=== PATIENT | male | born 1945 | race Caucasian/White ===

== ENCOUNTER 2020-10-18 12:48 | Emergency (ER) | payer OTHER ==
[~2020-10-18] VITALS: Ht 167.6 cm; Wt 102.1 kg
[~2020-10-18 12:48] MED LIST: ALLO100 PO; ASPI81CH PO; ATEN100; BENA20 PO; FISH1000 PO; OXYB5 PO; Simvastatin10 MG PO
[2020-10-18 14:01] LABS: BASOPHILS ABSOLUTE AUTO 0.01 K/mm3 (0.00-0.23); BASOPHILS PERCENT AUTO 0 % (0-2); EOSINOPHILS PERCENT AUTO 0 % (0-6); Hematocrit 40.2 % (37.0-53.0); Hemoglobin 13.3 g/dL (13.5-17.5); IMMATURE GRAN ABSOLUTE AUTO 0.02 K/mm3 (0.00-0.10); IMMATURE GRAN PERCENT AUTO 0 % (0-1); LYMPHOCYTES ABSOLUTE AUTO 1.33 K/mm3 (0.84-5.20); LYMPHOCYTES PERCENT AUTO 27 % (21-46); MONOCYTES ABSOLUTE AUTO 0.52 K/mm3 (0.16-1.47); MONOCYTES PERCENT AUTO 11 % (4-13); Mean Corpuscular HGB 30.6 pg (26.0-34.0); Mean Corpuscular HGB Conc 33.1 g/dL (31.5-36.5); Mean Corpuscular Volume 92 fL (80-100); Mean Platelet Volume 10.1 fL (9.1-12.4); NEUTROPHILS PERCENT AUTO 61 % (41-73); Platelet Count 153 K/mm3 (150-400); RDW Coefficient Variation 12.3 % (11.7-14.2); RDW Standard Deviation 42.5 fL (35.1-46.3); Red Blood Cell Count 4.35 M/mm3 (4.30-5.90); White Blood Cell Count 4.88 K/mm3 (4.00-11.30)
[2020-10-18 14:23] LABS: Albumin, Blood 3.3 g/dL (3.4-5.0); Albumin/Globulin Ratio 0.8 (0.8-1.8); Bilirubin, Total 0.3 mg/dL (0.1-1.0); Bun/Creatinine Ratio 14.3 (12.0-20.0); Calcium, Blood 8.3 mg/dL (8.5-10.1); Creatinine, Blood 1.54 mg/dL (0.60-1.20); Globulin, Blood 4.1 g/dL (2.2-4.0); Potassium, Blood 4.1 mmol/L (3.5-5.5); Total Protein, Blood 7.4 g/dL (6.4-8.2); Troponin I 0.04 ng/mL (0.000-0.040)
== END 2020-10-18 18:20 | disposition home or self-care (01) ==
LOC: ER 12:48
PROVIDERS: Physician Assistant
DX: U07.1 COVID-19 (principal); Z79.82 Long term (current) use of aspirin; Z79.899 Other long term (current) drug therapy
CPT/HCPCS: 36415; 71046; 80053; 83690; 83880; 84484; 85025; 93005; 93010; 99284-25

== ENCOUNTER 2021-08-28 10:51 | Day surgery (SDC) | payer OTHER ==
[~2021-08-28] VITALS: Ht 170.2 cm; Wt 99.5 kg
[2021-08-28] MEDS ORDERED: BUSP10 PO (11:38)
[2021-08-28] MEDS ORDERED: CATAPRES0.2 M1 PO (11:38)
[2021-08-28] MEDS ORDERED: SPIR50 PO (11:39)
[2021-08-28] MEDS ORDERED: FISH OIL 1,2001 EAC7 PO (11:41)
[2021-08-28] MEDS ORDERED: AMLO10 PO (11:41)
[2021-08-28] MEDS ORDERED: VITAMIN D31000 UNI1 PO (11:42)
[2021-08-28] MEDS ORDERED: HYDR100 PO (11:42)
== END 2021-08-28 13:28 | disposition home or self-care (01) ==
LOC: ORSCSDS 10:51
PROVIDERS: Student in an Organized Health Care Education/Training Program
PROC: 0D758ZZ Dilation of Esophagus, Via Natural or Artificial Opening Endoscopic (ICD-10-PCS; principal; 2021-08-28 12:00)
PROC: 0DB68ZX Excision of Stomach, Via Natural or Artificial Opening Endoscopic, Diagnostic (ICD-10-PCS; principal; 2021-08-28 12:00)
DX: R13.10 Dysphagia, unspecified (principal); I10 Essential (primary) hypertension; G47.33 Obstructive sleep apnea (adult) (pediatric); E66.9 Obesity, unspecified; I25.10 Atherosclerotic heart disease of native coronary artery without angina pectoris; Z68.34 Body mass index [BMI] 34.0-34.9, adult; Z79.82 Long term (current) use of aspirin; Z79.899 Other long term (current) drug therapy
CPT/HCPCS: 88305; 88342; J2704; J7120

== ENCOUNTER 2023-06-24 13:50 | Day surgery (SDC) | payer OTHER ==
[~2023-06-24] VITALS: Ht 172.7 cm; Wt 96.3 kg
[~2023-06-24 13:50] MED LIST changes: +ALLO300 PO; +AMLO10 PO; +Atropine Sulfate 0.1 MG/ML 10ML SYR ONE; +BENAZEPRIL HCL40 M1 PO; +BUSP10 PO; +CARV25 PO; +CATAPRES0.2 M1 PO; +DICL75ER PO; +EPLE25 PO; +FISH OIL 1,2001 EAC7 PO; +GABA300 PO; +Glycopyrrolate 0.2 MG/ML 1MLVIAL ONE; +HYDR100 PO; +Lactated Ringer's 1,000 ML IV ONE; +Lidocaine 2% 5 ML SDV ONE; +Lidocaine HCl/Pf 1% 5 ML VIAL ONE; +Methylene Blue 1% 100 MG/10 ML VIAL ONE; +Ondansetron HCl 2 MG / ML 2ML Vial ONE; +SPIR50 PO; +TAMS.4ER PO; +VITAMIN D31000 UNI1 PO; +ePHEDrine Sulfate 50 MG/ML 1ML Injection ONE
--- NOTE | 2023-06-24 15:54 | NUR ---
06/24/23 1554 Clarissa Carmen PT'S BP WAS 214/92 IN PRE OP. DOCTOR BECERRA AND DOCTOR CARDOSO NOTIFIED. WHILE DISCUSSING THE BP READINGS WITH THE DOCTORS, PT STATED "I DO NOT FEEL SAFE PROCEEDING WITH THIS PROCEDURE WITH MY BP SO HIGH. IS IT OK IF I RESCHEDULE?" BOTH DOCTORS NOTIFIED OF PT'S WISHES TO RESCHEDULE. DR BECERRA STATED PT SHOULD FOLLOW UP WITH PCP AND THE OFFICE WILL CALL TO RESCHEDULE PT FOR HIS PROCEDURE. PT ADVISED TO FOLLOW UP TODAY WITH PRIMARY CARE OR GO TO THE ER IF HE DEVELOPS SYMPTOMS OF HYPERTENSION (HEADACHES, DIZZINESS, BLURRED VISION). PT STATED HE WAS LEAVING THE SURGERY CENTER AND GOING OVER TO [place] TO SEE HIS PCP REGARDING HIS BP READINGS TODAY. PT VOICED UNDERSTANDING AND WISHED TO RESCHEDULE HIS CASE WHEN HIS BP IS BETTER CONTROLLED.
[2023-07-23] MEDS ORDERED: Zocor20 MG PO (10:20)
== END 2023-06-24 15:15 | disposition home or self-care (01) ==
LOC: ORSCSDS 13:50
DX: Z12.11 Encounter for screening for malignant neoplasm of colon (principal); Z53.9 Procedure and treatment not carried out, unspecified reason
CPT/HCPCS: J0461; J2001; J2405; J7120; Q9968

== ENCOUNTER 2023-09-02 21:26 | Emergency (ER) | payer OTHER ==
[~2023-09-02] VITALS: Ht 170.2 cm; Wt 94.8 kg
[~2023-09-02 21:26] MED LIST changes: -Atropine Sulfate 0.1 MG/ML 10ML SYR ONE; -Glycopyrrolate 0.2 MG/ML 1MLVIAL ONE; -Lactated Ringer's 1,000 ML IV ONE; -Lidocaine 2% 5 ML SDV ONE; -Lidocaine HCl/Pf 1% 5 ML VIAL ONE; -Methylene Blue 1% 100 MG/10 ML VIAL ONE; -Ondansetron HCl 2 MG / ML 2ML Vial ONE; +Zocor20 MG PO; -ePHEDrine Sulfate 50 MG/ML 1ML Injection ONE
[2023-09-02 22:04] VITALS: BP 175/86
[2023-09-02 22:15] LABS: Source, Urine Clean Catch
[2023-09-02 22:18] LABS: Appearance, Urine Hazy (Clear); Bilirubin, Urine Neg (Neg); Blood, Urine 5+ (Neg); Color, Urine Yellow (P-Yellow); Glucose Qualitative, Urine Neg (Neg); Ketones, Urine Neg (Neg); Leukocyte Esterase, Urine 1+ (Neg); Nitrite, Urine Neg (Neg); Protein, Urine 2+ (Neg); Specific Gravity, Urine 1.015 (1.003-1.022); Urobilinogen, Urine NORM (Normal); pH, Urine 6.5 (5.0-8.0)
[2023-09-02 22:37] LABS: Bacteria Mod /hpf; Red Blood Cells, Urine 25-50 /hpf (0-2); Squamous Epithelial Cells Few /hpf (Few)
[2023-09-02] MEDS ORDERED: CEPH500 PO (22:39)
[2023-09-02] MEDS ORDERED: Cephalexin Monohydrate 500 MG Cap PO ONE (22:40)
== END 2023-09-02 22:50 | disposition home or self-care (01) ==
LOC: ER 21:26
PROVIDERS: Physician Assistant
DX: N39.0 Urinary tract infection, site not specified (principal); Z79.82 Long term (current) use of aspirin; Z79.899 Other long term (current) drug therapy
CPT/HCPCS: 81001; 87086; 99283; A9270

== ENCOUNTER 2023-09-06 07:33 | Emergency (ER) | payer OTHER ==
[~2023-09-06] VITALS: Ht 170.2 cm; Wt 95.2 kg
[~2023-09-06 07:33] MED LIST changes: +CEPH500 PO
[2023-09-06] MEDS ORDERED: NEURONTIN300 MG PO (08:29)
[2023-09-06 08:59] LABS: Source, Urine Clean Catch
[2023-09-06 09:04] LABS: Appearance, Urine Cloudy (Clear); Bilirubin, Urine Neg (Neg); Blood, Urine 5+ (Neg); Color, Urine Red (P-Yellow); Glucose Qualitative, Urine Neg (Neg); Ketones, Urine 1+ (Neg); Leukocyte Esterase, Urine 1+ (Neg); Nitrite, Urine Neg (Neg); Protein, Urine 4+ (Neg); Urobilinogen, Urine NORM (Normal)
[2023-09-06 09:10] LABS: Red Blood Cells, Urine TNTC /hpf (0-2)
[2023-09-06 09:13] LABS: Squamous Epithelial Cells Not Seen /hpf (Few); White Blood Cells, Urine 0-2 /hpf (0-5)
[2023-09-06 09:14] LABS: Bacteria Rare /hpf
[2023-09-06 09:19] LABS: BASOPHILS ABSOLUTE AUTO 0.03 K/mm3 (0.00-0.23); BASOPHILS PERCENT AUTO 1 % (0-2); EOSINOPHILS ABSOLUTE AUTO 0.05 K/mm3 (0.00-0.68); EOSINOPHILS PERCENT AUTO 1 % (0-6); Hematocrit 38.8 % (37.0-53.0); IMMATURE GRAN ABSOLUTE AUTO 0.02 K/mm3 (0.00-0.10); IMMATURE GRAN PERCENT AUTO 0 % (0-1); LYMPHOCYTES PERCENT AUTO 29 % (21-46); MONOCYTES ABSOLUTE AUTO 0.49 K/mm3 (0.16-1.47); MONOCYTES PERCENT AUTO 7 % (4-13); Mean Corpuscular HGB 31.6 pg (26.0-34.0); Mean Corpuscular HGB Conc 33.5 g/dL (31.5-36.5); Mean Corpuscular Volume 94 fL (80-100); Mean Platelet Volume 10.7 fL (9.1-12.4); NEUTROPHILS ABSOLUTE AUTO 4.17 K/mm3 (1.96-9.15); NEUTROPHILS PERCENT AUTO 63 % (41-73); Platelet Count 198 K/mm3 (150-400); RDW Coefficient Variation 12.1 % (11.7-14.2); Red Blood Cell Count 4.12 M/mm3 (4.30-5.90); White Blood Cell Count 6.66 K/mm3 (4.00-11.30)
[2023-09-06 09:31] LABS: Albumin, Blood 3.7 g/dL (3.4-5.0); Bilirubin, Total 0.5 mg/dL (0.1-1.0); Bun/Creatinine Ratio 10.9 (12.0-20.0); Calcium, Blood 8.8 mg/dL (8.5-10.1); Creatinine, Blood 1.38 mg/dL (0.60-1.20); Globulin, Blood 3.6 g/dL (2.2-4.0); Potassium, Blood 4.3 mmol/L (3.5-5.5); Total Protein, Blood 7.3 g/dL (6.4-8.2)
[2023-09-06] MEDS ORDERED: Lidocaine 2% Jelly Uro-Jet UR ONE (10:10)
[2023-09-06 11:45] VITALS: BP 146/66
== END 2023-09-06 11:45 | disposition home or self-care (01) ==
LOC: ER 07:33
PROVIDERS: Physician Assistant
DX: R31.9 Hematuria, unspecified (principal); R33.9 Retention of urine, unspecified; Z79.82 Long term (current) use of aspirin; Z79.899 Other long term (current) drug therapy
CPT/HCPCS: 51702; 74177; 80053; 81001; 85025; 87086; 99284-25; Q9967

== ENCOUNTER 2023-09-19 12:33 | Emergency (ER) | payer OTHER ==
[~2023-09-19] VITALS: Ht 170.2 cm; Wt 94.8 kg
[~2023-09-19 12:33] MED LIST changes: +NEURONTIN300 MG PO
[2023-09-19] MEDS ORDERED: Acetaminophen 325 MG TABLET PO PRN (12:40)
[2023-09-19 13:08] LABS: BASOPHILS ABSOLUTE AUTO 0.02 K/mm3 (0.00-0.23); BASOPHILS PERCENT AUTO 0 % (0-2); EOSINOPHILS ABSOLUTE AUTO 0.01 K/mm3 (0.00-0.68); EOSINOPHILS PERCENT AUTO 0 % (0-6); Hematocrit 32.6 % (37.0-53.0); Hemoglobin 10.8 g/dL (13.5-17.5); IMMATURE GRAN ABSOLUTE AUTO 0.03 K/mm3 (0.00-0.10); IMMATURE GRAN PERCENT AUTO 0 % (0-1); LYMPHOCYTES ABSOLUTE AUTO 1.02 K/mm3 (0.84-5.20); LYMPHOCYTES PERCENT AUTO 13 % (21-46); MONOCYTES ABSOLUTE AUTO 0.72 K/mm3 (0.16-1.47); MONOCYTES PERCENT AUTO 9 % (4-13); Mean Corpuscular HGB 31.5 pg (26.0-34.0); Mean Corpuscular HGB Conc 33.1 g/dL (31.5-36.5); Mean Corpuscular Volume 95 fL (80-100); Mean Platelet Volume 9.9 fL (9.1-12.4); NEUTROPHILS PERCENT AUTO 77 % (41-73); Platelet Count 184 K/mm3 (150-400); RDW Coefficient Variation 12.5 % (11.7-14.2); RDW Standard Deviation 43.4 fL (35.1-46.3); Red Blood Cell Count 3.43 M/mm3 (4.30-5.90)
[2023-09-19 13:20] LABS: Bun/Creatinine Ratio 9.5 (12.0-20.0); Calcium, Blood 8.4 mg/dL (8.5-10.1); Creatinine, Blood 1.68 mg/dL (0.60-1.20); Potassium, Blood 4.2 mmol/L (3.5-5.5)
[2023-09-19 13:50] LABS: Albumin/Globulin Ratio 0.8 (0.8-1.8); Bilirubin, Total 0.4 mg/dL (0.1-1.0); Globulin, Blood 3.6 g/dL (2.2-4.0); Total Protein, Blood 6.6 g/dL (6.4-8.2)
[2023-09-19 13:59] LABS: Influenza A, PCR NEGATIVE (NEGATIVE); Influenza B, PCR NEGATIVE (NEGATIVE); Resp Syncytial Virus, PCR NEGATIVE (NEGATIVE)
[2023-09-19 14:10] LABS: SARS-Cov-2 (COVID-19) PCR, MMC POSITIVE (NEGATIVE)
[2023-09-19] MEDS ORDERED: CloNIDine 0.1 MG Tab PO ONE (15:00)
[2023-09-19] MEDS ORDERED: RX PP Nirmatrelvir/Ritonavir (Paxlovid) 1 CO-PACKAGE (30 Tabs) UD ONE (15:00)
[2023-09-19 16:45] VITALS: BP 132/53
== END 2023-09-19 17:08 | disposition home or self-care (01) ==
LOC: ER 12:33
PROVIDERS: Emergency Medicine
DX: U07.1 COVID-19 (principal); R53.1 Weakness; G47.33 Obstructive sleep apnea (adult) (pediatric); Z79.899 Other long term (current) drug therapy; Z79.82 Long term (current) use of aspirin
CPT/HCPCS: 0241U; 71045; 80053; 84484; 85025; 93005; 93010; 99285-25; A9270

== ENCOUNTER → 2023-09-26 | Outpatient (CLI) | payer OTHER ==
[2023-09-26 12:19] LABS: Source, Urine Straight Cath
[2023-09-26 12:43] LABS: Bacteria Not Seen /hpf; Red Blood Cells, Urine 50-100 /hpf (0-2); Squamous Epithelial Cells Few /hpf (Few)
== END ==
LOC: LAB 12:17 → LAB SHORT 12:17
PROVIDERS: Internal Medicine
DX: R33.9 Retention of urine, unspecified (principal)
CPT/HCPCS: 81015; 87077; 87086; 87186

== ENCOUNTER → 2025-02-20 | Outpatient (CLI) | payer OTHER | END | disposition home or self-care (01) | LOC: LAB SHORT 17:11 → LAB 17:11 | DX: N39.0 Urinary tract infection, site not specified (principal) | CPT/HCPCS: 87086 ==